=== PATIENT | female | born 1945 | race African-American/Black ===

== ENCOUNTER 2017-11-09 08:49 | Day surgery (SDC) | payer BC, OTHER ==
[2017-11-06 17:45] VITALS: BMI 24.5
[2017-11-09 09:11] VITALS: TEMP 97.8
[2017-11-09] MEDS ORDERED: oxyCODONE HCL 5 MG TABLET PO PRN (10:44)
[2017-11-09] MEDS ORDERED: ONDANSETRON 4 MG/2 ML VIAL IVPUSH PRN (10:44)
[2017-11-09] MEDS ORDERED: PROMETHAZINE HCL 25 MG/1 ML VIAL IVPB PRN (10:44)
[2017-11-09] MEDS ORDERED: LACTATED RINGERS SOLUTION 1,000 ML IV SCH (10:45)
[2017-11-09] MEDS ORDERED: MIDAZOLAM HCL 2 MG/2 ML SINGLE DOSE VIAL ONE (11:00)
--- NOTE | 2017-11-09 11:54 | OP ---
Operative Note - Note: Operative Date: 11/09/17 Pre-Operative Diagnosis: Left kidney stone Operation: Left ESWL Findings: 6 mm Right kidney stone Post-Operative Diagnosis: Same as Pre-op Materials Inspector: Karl Mendoza Anesthesia: Fractional
[2017-11-09 15:02] VITALS: BP 118/72; PULSE 60
--- NOTE | 2017-11-09 23:04 | OP ---
DATE OF OPERATION: 11/09/2017 PREOPERATIVE DIAGNOSIS: Left kidney stone. POSTOPERATIVE DIAGNOSIS: Left kidney stone. PROCEDURE: Left extracorporeal shock wave lithotripsy. ATTENDING: Zhao Mendoza M.D. ANESTHESIA: Fractional. OPERATION: Patient was brought in the operating room, placed in a supine position on the operating room table. Ultrasonography and fluoroscopy were performed. A 6-mm left kidney stone was identified. Anesthesia and antibiotics were then administered. The lithotripsy was then started. 3000 pulses of 18 joules of power were administered to the stone with excellent fragmentation noted under real time fluoroscopy and ultrasonography. No complications noted. DISPOSITION: Disposition of the patient to the recovery room. ZHAO LYLES M.D. [id number]
== END 2017-11-09 15:03 | disposition home or self-care (01) ==
LOC: JASU-SURG 08:49
PROVIDERS: ATTEND Urology
PROC: 0TF4XZZ Fragmentation in Left Kidney Pelvis, External Approach (ICD-10-PCS; principal; 2017-11-09 10:15)
DX: N20.0 Calculus of kidney (principal)